=== PATIENT | male | born 1965 | race Caucasian/White ===

== ENCOUNTER 2016-11-20 00:51 | Emergency (ER) | payer OTHER | END 2016-11-20 03:11 | disposition home or self-care (01) | DX: J06.9 Acute upper respiratory infection, unspecified (principal) ==

== ENCOUNTER 2019-03-14 08:42 | Day surgery (SDC) | payer OTHER ==
[2019-03-14] MEDS ORDERED: LACTATED RINGERS 1,000 ML IV ONE ×2 (09:13→11:30)
--- NOTE | 2019-03-14 09:18 | ANESTHESIA ---
Pre-Anesthesia VS, & Labs - Diagnosis anal lesion - Procedure colonoscopy and excision of anal lesion Vital Signs: Temp Pulse Resp BP Pulse Ox 36.2 C L 63 16 126/96 H 96 03/14/19 09:02 03/14/19 09:02 03/14/19 09:02 03/14/19 09:02 03/14/19 09:02 Height 5 ft 10 in Weight (kg) 104.9 kg Body Mass Index 35.2 - NPO >8 hours Home Medications and Allergies Home Medications: Ambulatory Orders Cetirizine [ZyrTEC] 10 mg PO DAILY PRN 03/10/19 Fluticasone [Flonase] 1 sprays MIKE BID PRN 03/10/19 Olopatadine HCl [Patanol] 1 drops EACHEYE QID PRN 03/10/19 Rabeprazole Sodium [Aciphex] 20 mg PO DAILY 03/10/19 Levothyroxine Sodium [Synthroid] 175 mcg PO DAILY 01/29/14 Cetirizine [ZyrTEC] 10 mg PO DAILY PRN 03/10/19 Fluticasone [Flonase] 1 sprays MIKE BID PRN 03/10/19 Olopatadine HCl [Patanol] 1 drops EACHEYE QID PRN 03/10/19 Rabeprazole Sodium [Aciphex] 20 mg PO DAILY 03/10/19 Allergies/Adverse Reactions: Allergies Allergy/AdvReac Type Severity Reaction Status Date / Time No Known Drug Allergies Allergy Verified 11/20/16 00:57 Anes History & Medical History - Anesthetic History Family history of Anesthesia Complications: Denies Family history of Malignant Hyperthermia: Denies - Medical History Cardiovascular: reports: None Pulmonary: reports: None Gastrointestinal: reports: GERD (controlled on medication) Urinary: reports: None Neuro: reports: None Musculoskeletal: reports: None Endocrine/Autoimmune: reports: HyPOthyroidism (S/P radiated thyroid) Skin: reports: None Smoking Status: Former smoker (quit in 1988) Psychosocial: reports: No issues indicated - Surgical History General: Colonoscopy Eyes Ears Nose Throat (EENT): Other (eye surgery) Exam General: Alert, Oriented x3, Cooperative, No acute distress Dental: WNL Mouth Openin Fingerbreadth Neck Mobility: Normal Mallampati classification: II Thyromental Distance: greater than 6 cm Respiratory: Lungs clear, Normal breath sounds, No respiratory distress, No accessory muscle use Cardiovascular: Regular rate, Normal S1, Normal S2, No murmurs Mental/Cognitive Status: Alert/Oriented X3, Normal for patient Plan Anesthesia Type: MAC Consent for Procedure(s) Verified and Reviewed: Yes Code Status: Attempt Resuscitation ASA classification: 2-Mild systemic disease Is this case an emergency?: No
[2019-03-14] MEDS ORDERED: LIDOCAINE 1%-EPI 1:100000 20 ML MDV ONE (11:18)
[2019-03-14] MEDS ORDERED: BUPIVACAINE 0.25% PF 30 ML VIAL ONE (11:18)
[2019-03-14] MEDS ORDERED: LIDOCAINE-MPF 2% 5 ML VIAL IM ONE (11:48)
[2019-03-14] MEDS ORDERED: fentaNYL 100 MCG/2 ML VIAL IVP ONE (11:48)
[2019-03-14] MEDS ORDERED: MIDAZOLAM 2 MG/2 ML VIAL IVP ONE (11:48)
[2019-03-14] MEDS ORDERED: PROPOFOL 200 MG/20 ML VIAL IVP ONE (11:48)
[2019-03-14 12:35] VITALS: BP 108/80
--- NOTE | 2019-03-14 13:35 | OPERATIVE REPORT ---
Operative Report - General Planned Procedure: Excision anal lesion in concert with colonoscopy under MAC sedation Pre-Op Diagnosis: Anal lesion Procedure Performed: Excision anal lesion Post Op Diagnosis: Same - Procedure Note Primary Surgeon: Landon Blake MD Anesthesia Provider: Gibran Brown CRNA Anesthesia Technique: Local (30 mL of a 50-50 mix of half percent Marcaine and 1% lidocaine with epinephrine), MAC Estimated Blood Loss (mL): 0 Drain/Tube Type: Other (None.) Complications: None. - Other Other Information/Narrative: OPERATIVE DESCRIPTION/REPORT: After verbal and written informed consent was obtained detailing the risks of infection, bleeding requiring transfusion with its risks, nerve injury, and , and after I met with the patient confirming the surgery, the patient was brought to the operative suite and placed on his left side. Great care was taken to avoid pressure points to prevent pressure necrosis or nerve injury. Monitoring devices were applied along with TEDs and pneumatic compressive stockings (to prevent DVT). Gibran Brown CRNA sedated the patient for the combined procedure. A "time in" then confirmed that the patient was identified with 3 identifiers (name, date and medical record number), the history and physical was in the chart, the signed consent confirming the procedure was in the chart, the patient was in the correct position, the aforementioned prophylactic measures were in place or given, we had the correct personnel and equipment to complete the procedure and that anesthesia, surgery and nursing were given an opportunity to express any concerns. With the agreement of everyone in the room, we proceeded with the procedure. The patient had a colonoscopy and this is reported separately. At the completion of the colonoscopy, and with the patient still appropriately sedated, the anal area was prepped and draped in the usual standard manner, and the perianal area was anesthetized using a mix of Marcaine and lidocaine. A total of 30 mL of this mix was used. With the patient's anus insensate, the mass was excised using serial application of the harmonic scalpel. There was no bleeding. A dressing could not be applied due to its location. At this point a time out was performed that confirmed that all the counts were correct, the procedure that was performed, the blood loss, the IV fluids administered, and the patients condition. Having tolerated the procedure well, the patient was subsequently taken to recovery room in good and stable condition. Reese disclaimer: This document was created in part using voice recognition technology. Because of the inherent limitations of the system ([employer] user manual states that the licensee understands that speech recognition is a statistical process and that recognition errors are inherent in the process), occasional same sounding word substitutions and grammatical errors do occur and persist despite proofreading. Please read this document for context.
== END 2019-03-14 08:43 | disposition home or self-care (01) ==
LOC: SDS 08:42
PROVIDERS: ATTEND Surgery
PROC: 0DBP8ZZ Excision of Rectum, Via Natural or Artificial Opening Endoscopic (ICD-10-PCS; principal; 2019-03-14 09:55)
PROC: 0DBQ7ZZ Excision of Anus, Via Natural or Artificial Opening (ICD-10-PCS; 2019-03-14 09:55)
DX: K62.9 Disease of anus and rectum, unspecified (principal); K62.1 Rectal polyp; K64.8 Other hemorrhoids; K57.30 Diverticulosis of large intestine without perforation or abscess without bleeding; Z87.891 Personal history of nicotine dependence
CPT/HCPCS: 45380; 46922; J7120

== ENCOUNTER 2020-07-15 08:20 | Outpatient (CLI) | payer OTHER ==
--- NOTE | 2020-07-15 13:05 | XRAY Report ---
PROCEDURE: Shoulder 3 View RT INDICATIONS: RT SHOULDER IMPINGMENT TECHNIQUE: 3 views of the shoulder were acquired. COMPARISON: None. FINDINGS: Bones: No acute fractures or dislocations. Degenerative changes of the acromioclavicular and glenohu meral joints. Coracoclavicular and acromioclavicular intervals are maintained. No suspicious bony les ions. Visualized ribs appear intact. Soft tissues: No suspicious soft tissue calcifications. IMPRESSION: Right shoulder without acute osseous abnormalities or dislocation. Degenerative changes of the right acromioclavicular and glenohumeral joints. Reviewed by: Cooper Beyer MD on 07/15/2020 1:03 PM PDT Approved by: Cooper Beyer MD on 07/15/2020 1:03 PM PDT Station ID: [id number]
== END 2020-07-15 08:21 | disposition home or self-care (01) ==
LOC: DI 08:20
PROVIDERS: ATTEND Family Medicine
DX: M75.41 Impingement syndrome of right shoulder (principal); M19.011 Primary osteoarthritis, right shoulder; E03.9 Hypothyroidism, unspecified; K21.9 Gastro-esophageal reflux disease without esophagitis
CPT/HCPCS: 36415; 80053; 80061; 83721; 84153; 84439; 84443; 84481; 85025

== ENCOUNTER 2020-07-15 08:37 | Outpatient (CLI) | payer OTHER ==
[2020-07-15 08:50] LABS: BASOPHILS % (AUTO) 0.7 %; EOSINOPHILS # (AUTO) 0.1 10^3/uL (0.0-0.7); EOSINOPHILS % (AUTO) 1.6 %; HGB - HEMOGLOBIN 17.7 g/dL (14.0-18.0); LYMPHOCYTES # (AUTO) 1.7 10^3/uL (1.5-3.5); LYMPHOCYTES % (AUTO) 27.6 %; MEAN CORPUSCULAR HEMOGLOBIN 30.6 pg (27.0-31.0); MEAN CORPUSCULAR HGB CONC 33.2 g/dL (32.0-36.0); MEAN CORPUSCULAR VOLUME 92.2 fL (80.0-94.0); MEAN PLATELET VOLUME 11.2 fL (7.4-11.4); MONOCYTES # (AUTO) 0.6 10^3/uL (0.0-1.0); MONOCYTES % (AUTO) 10.2 %; NEUTROPHILS # (AUTO) 3.7 10^3/uL (1.5-6.6); NEUTROPHILS % (AUTO) 59.6 %; PLT - PLATELET COUNT 146 10^3/uL (130-450); RED BLOOD COUNT 5.78 10^6/uL (4.70-6.10); RED CELL DISTRIBUTION WIDTH 13.4 % (12.0-15.0); WHITE BLOOD COUNT 6.2 x10^3/uL (4.8-10.8)
[2020-07-15 09:07] LABS: ALBUMIN 4.5 g/dL (3.2-5.5); ALBUMIN/GLOBULIN RATIO 1.6 (1.0-2.2); ALKALINE PHOSPHATASE 65 IU/L (42-121); ALT ALANINE AMINOTRANSFERASE 69 IU/L (10-60); AST ASPARTATE AMINOTRANSFERASE 40 IU/L (10-42); BILIRUBIN,TOTAL 0.8 mg/dL (0.2-1.0); BUN - BLOOD UREA NITROGEN 15 mg/dL (6-20); CALCIUM 9.6 mg/dL (8.5-10.3); CARBON DIOXIDE - CO2 26 mmol/L (21-32); CHLORIDE 104 mmol/L (101-111); CHOL/HDL RATIO 3.2 (<5.0); CHOLESTEROL 185 mg/dL; CREATININE 0.9 mg/dL (0.6-1.2); GLUCOSE 115 mg/dL (70-100); HDL CHOLESTEROL 58 mg/dL; LDL CHOLESTEROL,CALCULATED 114 mg/dL; SODIUM 139 mmol/L (135-145); TOTAL PROTEIN 7.4 g/dL (6.7-8.2); VLDL CHOLESTEROL 13 mg/dL
[2020-07-15 09:19] LABS: THYROID STIMULATING HORMONE 0.47 uIU/mL (0.34-5.60)
[2020-07-15 09:21] LABS: FREE T3 4.32 pg/mL (2.5-3.9); FREE T4 (FREE THYROXINE) 1.58 ng/dL (0.58-1.64)
== END 2020-07-15 08:38 | disposition home or self-care (01) ==
LOC: LAB 08:37
PROVIDERS: ATTEND Family Medicine
DX: E03.9 Hypothyroidism, unspecified (principal); K21.9 Gastro-esophageal reflux disease without esophagitis
CPT/HCPCS: 36415; 80053; 80061; 83721; 84153; 84439; 84443; 84481; 85025

== ENCOUNTER 2021-10-03 07:25 | Outpatient (CLI) | payer OTHER ==
[2021-10-03 07:57] LABS: BASOPHILS # (AUTO) 0.1 10^3/uL (0.0-0.1); EOSINOPHILS # (AUTO) 0.1 10^3/uL (0.0-0.7); EOSINOPHILS % (AUTO) 1.8 %; HCT - HEMATOCRIT 54.6 % (42.0-52.0); HGB - HEMOGLOBIN 18.4 g/dL (14.0-18.0); LYMPHOCYTES % (AUTO) 40.4 %; MEAN CORPUSCULAR HEMOGLOBIN 30.2 pg (27.0-31.0); MEAN CORPUSCULAR HGB CONC 33.7 g/dL (32.0-36.0); MEAN CORPUSCULAR VOLUME 89.7 fL (80.0-94.0); MEAN PLATELET VOLUME 11.3 fL (7.4-11.4); MONOCYTES # (AUTO) 0.6 10^3/uL (0.0-1.0); NEUTROPHILS # (AUTO) 2.2 10^3/uL (1.5-6.6); NEUTROPHILS % (AUTO) 43.8 %; PLT - PLATELET COUNT 150 10^3/uL (130-450); RED BLOOD COUNT 6.09 10^6/uL (4.70-6.10); RED CELL DISTRIBUTION WIDTH 13.1 % (12.0-15.0)
[2021-10-03 08:03] LABS: ALBUMIN 4.5 g/dL (3.2-5.5); ALBUMIN/GLOBULIN RATIO 1.5 (1.0-2.2); BILIRUBIN,TOTAL 1.1 mg/dL (0.2-1.0); CALCIUM 9.6 mg/dL (8.5-10.3); POTASSIUM 4.3 mmol/L (3.5-5.0); TOTAL PROTEIN 7.6 g/dL (6.7-8.2)
[2021-10-03 08:10] LABS: CHOL/HDL RATIO 3.2 (<5.0); CHOLESTEROL 198 mg/dL; HDL CHOLESTEROL 62 mg/dL; LDL CHOLESTEROL,CALCULATED 117 mg/dL; LDL/HDL RATIO 1.9 (<3.6); TRIGLYCERIDES 95 mg/dL; VLDL CHOLESTEROL 19 mg/dL
[2021-10-03 08:21] LABS: THYROID STIMULATING HORMONE 7.69 uIU/mL (0.34-5.60)
[2021-10-03 08:22] LABS: FREE T3 3.85 pg/mL (2.5-3.9)
[2021-10-03 08:23] LABS: FREE T4 (FREE THYROXINE) 1.16 ng/dL (0.58-1.64)
[2021-10-03 10:07] LABS: ESTIMATED AVERAGE GLUCOSE 123 mg/dL (70-100); HEMOGLOBIN A1c% 5.9 % (4.27-6.07)
== END 2021-10-03 07:26 | disposition home or self-care (01) ==
LOC: LAB 07:25
PROVIDERS: ATTEND Family Medicine
DX: E66.9 Obesity, unspecified (principal); E03.9 Hypothyroidism, unspecified; E78.5 Hyperlipidemia, unspecified; K21.9 Gastro-esophageal reflux disease without esophagitis; R73.9 Hyperglycemia, unspecified; Z12.5 Encounter for screening for malignant neoplasm of prostate
CPT/HCPCS: 36415; 80053; 80061; 83036; 83721; 84153; 84439; 84443; 84481; 85025

== ENCOUNTER 2021-10-13 09:01 | Outpatient (CLI) | payer OTHER ==
--- NOTE | 2021-10-13 11:27 | XRAY Report ---
PROCEDURE: Shoulder 2 View RT INDICATIONS: IMPINGMENT SYNDROME OF RT SHOULDER,BAKERS CYST RT TECHNIQUE: 2 views of the shoulder were acquired. COMPARISON: Plain films dated 07/15/2020 FINDINGS: Bones: No fractures or dislocations. No suspicious bony lesions. Visualized ribs appear intact. Soft tissues: No suspicious soft tissue calcifications. IMPRESSION: No acute fracture. No osseous lesion. If symptoms and/or clinical suspicion for patholog y continue, further assessment with repeat plain films, or advanced imaging (e.g., CT, MRI, or bone s can) is recommended for further assessment. Reviewed by: Jeny Neal MD on 10/13/2021 11:26 AM [facility] Approved by: Jeny Neal MD on 10/13/2021 11:26 AM PST Station ID: [id number]
--- NOTE | 2021-10-13 17:34 | XRAY Report ---
PROCEDURE: Knee 3 View RT INDICATIONS: BAKERS CYST TECHNIQUE: 3 views of the right knee were acquired. COMPARISON: None. FINDINGS: Bones: No fractures or dislocations. There is minimal joint space narrowing in the medial compartme nt. No suspicious bony lesions. Soft tissues: No joint effusion. No suspicious soft tissue calcifications. IMPRESSION: 1. No fracture or dislocation. 2. Minimal joint space narrowing in the medial compartment. Reviewed by: Carloz Parra MD on 10/13/2021 5:33 PM PST Approved by: Carloz Parra MD on 10/13/2021 5:33 PM PST Station ID: [id number]
== END 2021-10-13 09:02 | disposition home or self-care (01) ==
LOC: DI 09:01
PROVIDERS: ATTEND Family Medicine
DX: M75.41 Impingement syndrome of right shoulder (principal); M71.21 Synovial cyst of popliteal space [Baker], right knee; M17.11 Unilateral primary osteoarthritis, right knee

== ENCOUNTER 2022-05-23 08:00 | Outpatient (CLI) | payer OTHER ==
--- NOTE | 2022-05-23 16:26 | XRAY Report ---
PROCEDURE: Shoulder 3 View RT INDICATIONS: SHOULDER PAIN TECHNIQUE: 4 views of the shoulder were acquired. COMPARISON: None. FINDINGS: Bones: No fractures or dislocations. No suspicious bony lesions. Visualized ribs appear intact. M ild periarticular osteophyte formation at the acromioclavicular and glenohumeral joints. Soft tissues: Calcification projects anterior to the humerus. IMPRESSION: 1. Osteoarthritis. 2. Findings suggestive of calcific tendinitis of the subscapularis versus an intra-articular loose sybil dy in the region of the bicipital groove. Further assessment with MRI may be helpful if clinically in dicated. Reviewed by: Jeny Neal MD on 05/23/2022 4:24 PM PDT Approved by: Jeny Neal MD on 05/23/2022 4:24 PM PDT Station ID: [id number]
--- NOTE | 2022-05-24 12:24 | XRAY Report ---
PROCEDURE: Knee 2 View RT INDICATIONS: RIGHT KNEE PAIN TECHNIQUE: 2 views of the right knee(s) were acquired. COMPARISON: X-ray right knee 3 views, 10/13/2021. FINDINGS: Bones: No fractures or dislocations. No suspicious bony lesions. There is mild degenerative joint d isease with joint space narrowing and small periarticular osteophytes. Soft tissues: No suspicious soft tissue calcifications. IMPRESSION: Mild degenerative joint disease. If clinical symptoms persist or clinical suspicion for internal derangement is high, MRI would be helpful. Reviewed by: Tali Miller MD on 05/24/2022 12:22 PM PDT Approved by: Tali Miller MD on 05/24/2022 12:22 PM PDT Station ID: [id number]
== END 2022-05-23 23:59 | disposition home or self-care (01) ==
LOC: DI.WOS 08:00
PROVIDERS: ATTEND Physician Assistant Surgical
DX: M19.011 Primary osteoarthritis, right shoulder (principal); R93.7 Abnormal findings on diagnostic imaging of other parts of musculoskeletal system; M17.11 Unilateral primary osteoarthritis, right knee

== ENCOUNTER 2022-05-23 09:30 | Outpatient (CLI) | payer OTHER | END 2022-05-23 09:31 | disposition home or self-care (01) | LOC: DI 09:30 | PROVIDERS: ATTEND Physician Assistant Surgical | DX: Z53.9 Procedure and treatment not carried out, unspecified reason (principal) ==

== ENCOUNTER 2022-06-15 08:00 | Outpatient (CLI) | payer OTHER ==
--- NOTE | 2022-06-15 14:26 | XRAY Report ---
PROCEDURE: Knee 4 View RT INDICATIONS: RIGHT KNEE INJURY 06.09.22 HEARD A POP TECHNIQUE: 4 views of the right knee(s) were acquired. COMPARISON: None. FINDINGS: Bones: No fractures or dislocations. No suspicious bony lesions. There is minimal to mild bilatera l medial compartment narrowing, left greater than right. Soft tissues: No joint effusion. No suspicious soft tissue calcifications. IMPRESSION: Early arthritic change. No visualized acute fracture or dislocation. However, occult inj ury cannot be excluded. Recommend short interval imaging follow-up in 7-10 days as clinically indicat ed for additional evaluation. Reviewed by: Ave Montana MD on 06/15/2022 2:24 PM PDT Approved by: Ave Montana MD on 06/15/2022 2:24 PM PDT Station ID: [id number]
== END 2022-06-15 23:59 | disposition home or self-care (01) ==
LOC: DI.WOS 08:00
PROVIDERS: ATTEND Orthopaedic Surgery
DX: M17.11 Unilateral primary osteoarthritis, right knee (principal)

== ENCOUNTER 2022-06-28 09:43 | Outpatient (CLI) | payer OTHER ==
[2022-06-28 10:09] LABS: CALCIUM 9.4 mg/dL (8.5-10.3); POTASSIUM 4.2 mmol/L (3.5-5.0)
[2022-06-28 12:25] LABS: ESTIMATED AVERAGE GLUCOSE 128 mg/dL (70-100); HEMOGLOBIN A1c% 6.1 % (4.27-6.07)
== END 2022-06-28 09:44 | disposition home or self-care (01) ==
LOC: LAB 09:43
PROVIDERS: ATTEND Family Medicine
DX: R73.03 Prediabetes (principal)
CPT/HCPCS: 36415; 80048; 83036